=== PATIENT | female | born 1995 | race Caucasian/White ===

== ENCOUNTER 2017-06-06 03:04 | Observation (INO) | payer BC ==
[~2017-06-06] VITALS: Ht 160 cm; Wt 84.8 kg
[2017-06-06] MEDS ORDERED: PNV1TABL76 PO (03:34)
== END 2017-06-06 04:23 | disposition home or self-care (01) ==
LOC: L&D 03:04
PROVIDERS: ADMIT Specialist; ATTEND Specialist
DX: O26.893 Other specified pregnancy related conditions, third trimester (principal); R10.9 Unspecified abdominal pain; Z3A.39 39 weeks gestation of pregnancy
CPT/HCPCS: 99281; G0378

== ENCOUNTER 2017-06-06 09:21 | Inpatient (IN) | payer BC ==
[~2017-06-06] VITALS: Ht 160 cm; Wt 85.7 kg
[~2017-06-06 09:21] MED LIST: PNV1TABL76 PO
[2017-06-06] MEDS ORDERED: DEXT 5%/LR + PITOCIN 20UNITS/L 1,000 ML IV SCH ×2 (10:03→15:30)
[2017-06-06] MEDS ORDERED: NALOXONE HCL 0.4 MG/ML 1ML VIAL IM PRN (10:15)
[2017-06-06] MEDS ORDERED: CARBOPROST TROMETHAMINE 250 MCG/ML AMPUL IM PRN (10:15)
[2017-06-06] MEDS ORDERED: METHYLERGONOVINE MALEATE 0.2 MG/ML IM PRN (10:15)
[2017-06-06] MEDS ORDERED: BUTORPHANOL TARTRATE 2 MG/ML VIAL IV PRN (10:15)
[2017-06-06] MEDS ORDERED: AMPICILLIN 2,000 MG in SODIUM CHLORIDE 0.9% 100 ML IV SCH (11:00)
[2017-06-06] MEDS ORDERED: PENICILLIN G POTASSIUM 5 MMU in DEXT 5% WATER 100 ML IV SCH (11:00)
[2017-06-06] MEDS ORDERED: TERBUTALINE SULFATE 1MG/ML VIAL SUBCUT PRN (11:00)
[2017-06-06] MEDS: LACTATED RINGERS 1,000 ML IV SCH ×2 (11:00→11:24)
[2017-06-06 11:10] LABS: BASOPHILS % 0.2 % (0.0-2.0); HEMOGLOBIN. 11.9 g/dL (12.0-16.0); LYMPHOCYTES % 15.4 % (20.0-50.0); MEAN CORPUSCULAR HEMOGLOBIN 29.6 pg (28.0-32.0); MEAN CORPUSCULAR VOLUME 84.7 fL (81.0-99.0); MEAN PLATELET VOLUME 10.5 fl (7.4-10.4); MONOCYTES % 6.1 % (2.0-8.0); NEUTROPHILS % 78.3 % (40.0-76.0); PLATELET 142 x1000/uL (130-400); RED BLOOD CELL COUNT 4.01 mill/uL (4.2-5.4); RED CELL DISTRIBUTION WIDTH 14.7 % (11.6-14.6)
[2017-06-06 11:11] LABS: CLARITY URINE CLEAR (CLEAR); COLOR URINE YELLOW (YELLOW); GLUCOSE URINE NEGATIVE (NEGATIVE); KETONES URINE NEGATIVE (NEGATIVE); LEUKOCYTE ESTERASE URINE NEGATIVE (NEGATIVE); NITRITE URINE NEGATIVE (NEGATIVE); OCCULT BLOOD URINE NEGATIVE (NEGATIVE); PH URINE 7.5 (4.5-8.0); PROTEIN URINE TRACE (NEGATIVE); SPECIFIC GRAVITY URINE 1.025 (1.005-1.030)
[2017-06-06 11:18] LABS: INR 0.9; PARTIAL THROMBOPLASTIN TIME 26.9 sec (23.4-31.0); PROTHROMBIN TIME 9.3 sec (9.4-11.6)
[2017-06-06 11:31] LABS: *AMPHETAMINES SCREEN URINE NEGATIVE (NEGATIVE); *BARBITURATES SCREEN URINE NEGATIVE (NEGATIVE); *BENZODIAZEPINES SCREEN URINE NEGATIVE (NEGATIVE); *COCAINE SCREEN URINE NEGATIVE (NEGATIVE); CANNABINOID URINE SCREEN NEGATIVE (NEGATIVE); METHADONE URINE SCREEN NEGATIVE (NEGATIVE); OPIATES URINE SCREEN NEGATIVE (NEGATIVE); PHENCYCLIDINE URINE SCREEN NEGATIVE (NEGATIVE)
[2017-06-06 12:18] LABS: RUBELLA IGG 46.2 IU/mL (4.99-10)
[2017-06-06 12:19] LABS: HEPATITIS B SURFACE ANTIGEN NEGATIVE
[2017-06-06] MEDS ORDERED: MORPHINE SULFATE/PF 1MG/ML 10ML AMP ONE (14:22)
[2017-06-06] MEDS ORDERED: MIDAZOLAM HCL 2 MG/2 ML VIAL ONE (14:22)
[2017-06-06] MEDS ORDERED: PHENYLEPHRINE HCL 10 MG/ML 1ML (IV VIAL) IV ONE (14:23)
[2017-06-06] MEDS ORDERED: ONDANSETRON HCL 4MG/2ML VIAL ONE (14:23)
[2017-06-06] MEDS ORDERED: OXYTOCIN 10 UNITS/ML 1ML ONE (14:23)
[2017-06-06] MEDS ORDERED: EPHEDRINE SULFATE 50MG/ML VIAL ONE (14:23)
[2017-06-06] MEDS ORDERED: DEXAMETHASONE 4MG/ML 1ML VIAL ONE (14:23)
[2017-06-06] MEDS ORDERED: CEFAZOLIN SODIUM 1000MG/VIAL ONE (14:23)
[2017-06-06] MEDS ORDERED: SODIUM CHLORIDE 0.9% 10ML VIAL ONE (15:19)
[2017-06-06] MEDS ORDERED: ONDANSETRON HCL 4MG/2ML VIAL IV PRN ×2 (15:30→16:00)
[2017-06-06] MEDS ORDERED: LANOLIN OINT 0.25 GM TUBE TOP PRN (15:30)
[2017-06-06] MEDS ORDERED: RHO(D) IMMUNE GLOBULIN 300 MCG/SYR IM PRN (15:30)
[2017-06-06] MEDS ORDERED: IBUPROFEN 400MG TABLET PO PRN (15:30)
[2017-06-06] MEDS ORDERED: DIPHENHYDRAMINE 50MG/ML VIAL IV PRN (16:00)
[2017-06-06] MEDS ORDERED: NALOXONE HCL 0.4 MG/ML 1ML VIAL IV PRN (16:00)
[2017-06-06 17:30] VITALS: BP 107/65
[2017-06-06 18:00] VITALS: BP 105/53
[2017-06-06 20:45] VITALS: BP 98/59
[2017-06-06] MEDS ORDERED: DOCUSATE SODIUM 100MG CAPSULE PO SCH (21:00)
[2017-06-06] MEDS: KETOROLAC 30MG/ML VIAL IV SCH (23:32)
[2017-06-07] VITALS: BP 108/61
[2017-06-07 04:00] VITALS: BP 97/48
[2017-06-07] MEDS: KETOROLAC 30MG/ML VIAL IV SCH ×2 (06:36→10:00)
[2017-06-07 07:03] LABS: BASOPHILS % 0.1 % (0.0-2.0); HEMATOCRIT. 30.4 % (36.0-48.0); HEMOGLOBIN. 10.3 g/dL (12.0-16.0); LYMPHOCYTES % 13.2 % (20.0-50.0); MEAN CORPUSCULAR HEMOGLOBIN 29.1 pg (28.0-32.0); MEAN CORPUSCULAR VOLUME 86.3 fL (81.0-99.0); MEAN PLATELET VOLUME 10.3 fl (7.4-10.4); MONOCYTES % 6.8 % (2.0-8.0); NEUTROPHILS % 79.9 % (40.0-76.0); PLATELET 130 x1000/uL (130-400); RED BLOOD CELL COUNT 3.52 mill/uL (4.2-5.4)
[2017-06-07 08:00] VITALS: BP 97/65
[2017-06-07] MEDS: PRENATAL VIT/FE FUMARATE/FA TABLET PO SCH (15:30)
[2017-06-07] MEDS: HYDROCODONE/ACETAMINOPHEN 5/325MG TABLET PO PRN (15:30)
[2017-06-07] MEDS: IBUPROFEN 800MG TABLET PO PRN ×2 (15:30→22:11)
[2017-06-07 16:45] VITALS: BP 112/84
[2017-06-07 20:07] VITALS: BP 102/65
[2017-06-07 22:00] VITALS: BP 104/68
[2017-06-08] VITALS: BP 92/61
[2017-06-08 05:26] VITALS: BP 106/61
[2017-06-08 07:28] VITALS: BP 94/62
[2017-06-08] MEDS: PRENATAL VIT/FE FUMARATE/FA TABLET PO SCH (07:30)
[2017-06-08] MEDS: IBUPROFEN 800MG TABLET PO PRN ×2 (07:30→13:43)
[2017-06-08 15:17] VITALS: BP 107/65
[2017-06-08] MEDS: HYDROCODONE/ACETAMINOPHEN 5/325MG TABLET PO PRN (18:28)
[2017-06-08 20:00] VITALS: BP 97/59
[2017-06-09] VITALS: BP 100/60
[2017-06-09 04:00] VITALS: BP 102/62
[2017-06-09 07:45] VITALS: BP 110/76
[2017-06-09] MEDS: PRENATAL VIT/FE FUMARATE/FA TABLET PO SCH (08:10)
[2017-06-09 08:11] VITALS: BP 110/76
[2017-06-09] MEDS: IBUPROFEN 800MG TABLET PO PRN (08:11)
[2017-06-09] MEDS ORDERED: TETANUS, DIPHTHERIA, PERTUSSIS VAC/PF 0.5ML (>7YR OLD) IM ONE (10:00)
== END 2017-06-09 14:35 | disposition home or self-care (01) | DRG 765 ==
LOC: OBSVTOIN 09:21 → L&D 09:21 → 7EST PP/OB 17:59
PROVIDERS: ADMIT Obstetrics & Gynecology; ATTEND Specialist
PROC: 10D00Z1 Extraction of Products of Conception, Low, Open Approach (ICD-10-PCS; principal; 2017-06-06 17:00)
DX: O32.1XX0 Maternal care for breech presentation, not applicable or unspecified (principal); D62 Acute posthemorrhagic anemia; O99.824 Streptococcus B carrier state complicating childbirth; O99.02 Anemia complicating childbirth; Z3A.39 39 weeks gestation of pregnancy; Z37.0 Single live birth
CPT/HCPCS: 36415; 76815; 80305; 81001; 85025; 85610; 85730; 86592; 86703; 86762; 86850; 86900; 87340; 88307; 90715; A4216; C1893; J0171; J0290; J0595; J0690; J1100; J1885; J2250; J2274; J2370; J2405; J2540; J2590; J3105; J7050; J7060; J7120; A4315